=== PATIENT | female | born 1945 | race Caucasian/White ===

== ENCOUNTER 2022-09-11 13:19 | Outpatient (CLI) | payer MEDICARE, OTHER, SELFPAY ==
--- NOTE | 2022-09-11 13:30 | CRLHL7_ITS ---
For Patients: As a result of the Century Cures Act, medical imaging exams and procedure reports are released immediately into your electronic medical record. You may view this report before your referring provider. If you have questions, please contact your health care provider. DXA BONE MINERAL DENSITY STUDY Reason for exam: Bone density disorder. Current height (in): 60. Weight (lb): 124. Menopause age: 49. Ethnicity: White. 1. Have you had a previous hip or vertebral fracture? No. 2. Have you had any fractures during your adult life which did not result from significant trauma (e.g., auto accident)? No. 3. Did either of your parents have a hip fracture? No. 4. Do you smoke? No. 5. Have you ever taken Glucocorticoids? No. 6. Do you have rheumatoid arthritis? No. 7. Do you have secondary osteoporosis? No. 8. Do you drink 3 or more alcoholic drinks per day? No. 9. Are you being treated for osteoporosis? No. 10. Have you ever taken any of the following medications: Actonel, Evista, Fosamax, Miacalcin, Reclast, Boniva, Forteo, HRT (i.e., estrogen/hormone therapy), Protelos, Prolia, Vitamin D, Calcium, other ??? please specify. ANSWER: Yes, Fosamax and calcium. 11. Do you have any of the following medical conditions: Anorexia or bulimia, asthma or emphysema, end stage renal disease, hyperparathyroidism, any seizure disorders, cancer, inflammatory bowel diseases, hysterectomy, other ??? please specify. 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 What was your maximum height (inches)? 62. 13. Do you perform weight bearing exercise regularly? Yes. 14. Do you regularly consume dairy products? Yes. 15. Do you drink caffeinated beverages? Yes. If female: 16. At what age did your period start? 15. 17. Are you premenopausal? No. 18. How many full-term pregnancies have you had? 3. 19. Have you ever missed your period for more than 6 months in a row (not including or menopause)? No. TECHNIQUE: Bone mineral density study was performed using the [employer]. FINDINGS: The results of the study expressed as bone mineral density (BMD) are as follows: Lumbar spine L1 to L3: BMD: 0.785 g/cm2. T-score: -2.1. Z-score: 0.4 Neck Left: BMD: 0.645 g/cm2. T-score: -1.8. Z-score: 0.4 Right: BMD: 0.672 g/cm2. T-score: -1.6. Z-score: 0.6 Total Left: BMD: 0.776 g/cm2. T-score: -1.4. Z-score: 0.6 Right: BMD: 0.812 g/cm2. T-score: -1.1. Z-score: 0.9 IMPRESSION: Osteopenia. FRAX 10-year Fracture Risk Major Osteoporotic Fracture: 14% Hip Fracture: 3.6% Reported Risk Factors: [place] () Neck BMD=0.645, BMI= 24.2 Jorge Pennington M.D. Diagnostic Radiologist [email or web address] [email or web address]/[email or web address]/Dictated by: Jorge Pennington MD @ 09/11/2022 3:45:00 PM (Electronically Signed)
== END 2022-09-11 13:20 | disposition home or self-care (01) ==
LOC: RAD 13:22
PROVIDERS: PCP Internal Medicine; Visit Provider Internal Medicine
DX: M85.88 Other specified disorders of bone density and structure, other site (principal)
CPT/HCPCS: 77080

== ENCOUNTER 2022-10-22 08:28 | Outpatient (CLI) | payer MEDICARE, OTHER, SELFPAY | END 2022-10-22 08:29 | disposition home or self-care (01) | LOC: NFLDREF 10-23 00:40 | PROVIDERS: PCP Internal Medicine; Referring Provider Internal Medicine; Visit Provider Internal Medicine | DX: E78.5 Hyperlipidemia, unspecified (principal); E03.9 Hypothyroidism, unspecified | CPT/HCPCS: 80061; 84443 ==

== ENCOUNTER 2022-11-26 10:05 | Outpatient (CLI) | payer MEDICARE, OTHER, SELFPAY ==
--- NOTE | 2022-11-26 10:15 | CRLHL7_ITS ---
For Patients: As a result of the Cures Act, medical imaging exams and procedure reports are released immediately into your electronic medical record. You may view this report before your referring provider. If you have questions, please contact your health care provider. BILATERAL SCREENING MAMMOGRAM WITH COMPUTER-AIDED DETECTION AND TOMOSYNTHESIS TECHNIQUE: CC and MLO views were obtained. These mammographic images have been obtained using full-field digital technique. These mammographic images were interpreted with the benefit of computer-aided detection. Breast tomosynthesis was used in this interpretation. COMPARISON FILM: 12/07/21 10/11/20, 11/15/19. FINDINGS: The breasts are heterogeneously dense, which may obscure small masses. IMPRESSION: There is no radiographic evidence for malignancy. ASSESSMENT: BI-RADS Category 2: Benign RECOMMENDATION: Routine screening mammogram in 1 year. A lay language report of this examination will be provided to the patient. DUNG GARCIA M.D. Diagnostic/Nuclear Medicine Radiologist [email or web address] Transcribed: 2:[address]/Dictated by: Dung Garcia MD @ 11/29/2022 10:49:00 AM (Electronically Signed)
== END 2022-11-26 10:06 | disposition home or self-care (01) ==
LOC: MAMMO 10:06
PROVIDERS: PCP Internal Medicine; Visit Provider Internal Medicine
DX: Z12.31 Encounter for screening mammogram for malignant neoplasm of breast (principal); R92.2 Inconclusive mammogram
CPT/HCPCS: 77063; 77067

== ENCOUNTER 2023-10-28 08:30 | Outpatient (CLI) | payer MEDICARE, OTHER, SELFPAY ==
--- OUTSIDE RECORDS SUMMARY | 2023-10-30 11:25 | XMS_ITS | Encounter Summary ---
Author Organization [facility] Address [address] [place] [id number] Care Team Providers Care Fountain Pen Nibs Inspector Name Role Phone Elsewhere, Pcp Primary Care Provider Unavailabl e Encounter Details Date Type Department Care Team (Late st Contact Info) Description 07/21/2023 Orders Only Division of Colon and Rectal Surgery in [place], [place] [address] [place] [phone] Evan Good, PBrijeshABrijesh-C. [address] [place] [phone] Ileostomy Status (HCC) (Primary Dx) Social History Tobacco Use Types Packs/Day Years Used Date Smoking Tobacco: Never Passive Smoke Exposure: Never Smokeless Tobacco: Never Alcohol Use Standard Drinks/Week Comments Never 0 (1 standard drink = 0.6 oz pur e alcohol) Humiliation, Afraid, Rape, and Kick questionnair e Answer Date Recorded Within the last year, have y ou been afraid of your partner or ex-partner? No 12/03/2021 Within the last year, have y ou been humiliated or emotionally abused in other ways by your partner or ex-partner? No Within the last year, have y ou been kicked, hit, slapped, or otherwise physically hurt by your partner or ex-partner? No 12/03/2021 Within the last year, have y ou been raped or forced to have any kind of sexual activity by your partner or ex-partner? No 12/03/2021 Social Connection and Isolat ion Panel [NHANES] Answer Date Recorded In a typical week, how many times do you talk on the phone with family, friends, or neighbors? Twice a week 12/03/2021 How often do you get togethe r with friends or relatives? Three times a week 12/03/2021 How often do you attend chur or islam services? More than 4 times per year 12/03/2021 Do you belong to any clubs o r organizations such as oriental orthodox groups, unions, fraternal or athletic groups, or school groups? Yes 12/03/2021 How often do you attend meet ings of the clubs or organizations you belong to? More than 4 times per year 12/03/2021 Are you , , di vorced, , never , or living with a partner? 12/03/2021 AUDIT-C Answer Date Recorded Q1: How often do you have a drink containing alc ohol? Never 12/03/2021 Average Number of Drinks Not on file 022 Frequency of Binge Drinking Not on file 11/11 Overall Financial Resource Strain (CARDIA) Answe r Date Recorded How hard is it for you to pa y for the very basics like food, housing, medical care, and heating? Not hard at all 01/15/2023 PHQ-2 Answer Date Recorded PHQ-2 Score 2 04/16/2021 [facility] - Occupational Stress Questionnaire Answer Date Recorded Do you feel stress - tense, restless, nervous, or anxious, or unable to sleep at night because your mind is troubled all the time - these days? Not at all 12/03/2021 Exercise Vital Sign Answer Date Recorde d On average, how many days pe r week do you engage in moderate to strenuous exercise (like a brisk walk)? 7 days 01/15/2023 On average, how many minutes do you engage in exercise at this level? 70 min 01/15/2023 Hunger Vital Sign Answer Date Recorded Within the past 12 months, y ou worried that your food would run out before you got the money to buy more. Never true 01/16/20 23 Within the past 12 months, t he food you bought just didn't last and you didn't have money to get more. Never true 01/15/2023 PRAPARE - Transportation Answer Date Re corded In the past 12 months, has l ack of transportation kept you from medical appointments or from getting medications? No 07/2022 In the past 12 months, has l ack of transportation kept you from meetings, work, or from getting things needed for daily living? No 01/15/2023 Nutrition Answer Date Recorded On average, how many serving s of fruits and vegetables do you eat per day (serving size is equal to 1 cup or approximately the size of a tennis ball)? 5 or more 01/15/2023 Dental Answer Date Recorded Dental: Regular Dentist Yes 04/02/19 Employment Answer Date Recorded Employment status Retired 01/15/2023 Housing Stability Answer Date Recorded What is your living situation today? [facility] to live 01/15/2023 Education Answer Date Recorded What is the highest level of school you have completed or the highest degree you have received? Some college, no degree 04/16/2021 Sex and Gender Information Value Date Recorded Sex Assigned at Female 11/19/2018 6:54 AM CDT Gender Identity Female 10/14/2017 2:48 PM CDT Sexual Orientation Straight 10/14/2017 2: 48 PM CDT documented as of this encounter Plan of Treatment Upcoming Encounters Date Type Department Care Team (Latest Contact Info) Description 11/12/2023 8:10 AM CDT Appointment Department of Laboratory Medicine and Pathology, [facility], in [place], [place] 200 [place] [phone] Alejandro Flores APRN, C.N.P. 200 [place] [phone] 11/12/2023 9:00 AM CDT Appointment Department of Radiology in [place], [place] 200 [place] [phone] Alejandro Flores APRN, C.N.P. [address] [place] [phone] Discharge Disposition: Home or Self Care 11/12/2023 10:45 AM CDT Appointment Department of Radiology, [facility], in [place], [place] [address] [place] [phone] Alejandro Flores APRN, C.N.P. [address] [place] [phone] 11/12/2023 3:00 PM CDT Office Visit Division of Gastroenterology in [place], [place] [address] [place] [phone] Alejandro Flores APRN, C.N.P. [address] [place] [phone] documented as of this encounter Visit Diagnoses Diagnosis Ileostomy Status (HCC)- Primary documented in this encounter Additional Health Concerns Assessment Noted Time PHQ-9 Depression Total Score: 0 10/18/19 17 3:33 PM CDT documented as of this encounter Care Teams Fountain Pen Nibs Inspector Relationship Specialty Start Date End Date Elsewhere, Pcp PCP - General Internal Medicine 01/17/23 documented as of this encounter
--- OUTSIDE RECORDS SUMMARY | 2023-10-30 11:25 | XMS_ITS | Encounter Summary ---
Author Organization [facility] Address [address] [place] [address] Care Team Providers Care Security System Installer Name Role Phone Elsewhere, Pcp Primary Care Provider Unavailabl e Encounter Details Date Type Department Care Team (Late st Contact Info) Description 11/22/2015 Historical Ophthalmology [facility] Joni Viveros M.D. Social History Tobacco Use Types Packs/Day Years Used Date Smoking Tobacco: Never Assessed Sex and Gender Information Value Date Recorded Sex Assigned at Female 11/19/2018 6:54 AM CDT Gender Identity Female 10/14/2017 2:48 PM CDT Sexual Orientation Straight 10/14/2017 2: 48 PM CDT documented as of this encounter Progress Notes * Joni Viveros M.D. - 11/22/2015 7:29 AM CDT Eye General CHIEF COMPLAINT 1 year check up HISTORY OF PRESENT ILLNESS Mild blur; at night; both eyes; constant. Occasionally wears +.75 OTC readers for very small print,nothing for distance. IMPRESSION / REPORT / PLAN #1 PVD both eyes Plan: Monitor Q2 years DIAGNOSIS #1 PVD both eyes CDM Reports - EYEGEN Id: [id number] Status: Fnl documented in this encounter Plan of Treatment Upcoming Encounters Date Type Department Care Team (Latest Contact Info) Description 11/12/2023 8:10 AM CDT Appointment Department of Laboratory Medicine and Pathology, [facility] in [place], [place] [address] [place] [phone] Alejandro Flores APRN, C.N.P. [address] [place] [phone] 11/12/2023 9:00 AM CDT Appointment Department of Radiology in [place], [place] [address] [place] [phone] Alejandro Flores APRN, C.N.P. [address] [place] [phone] Discharge Disposition: Home or Self Care 11/12/2023 10:45 AM CDT Appointment Department of Radiology, [facility] in [place], [place] [address] [place] [phone] Alejandro Flores APRN, C.N.P. [address] [place] [phone] 11/12/2023 3:00 PM CDT Office Visit Division of Gastroenterology in [place], [place] [address] [place] [phone] Alejandro Flores APRN, C.N.P. [address] [place] [phone] documented as of this encounter Visit Diagnoses Not on filedocumented in this encounter Additional Health Concerns Infection Onset Date Last Indicated Resolved Time COVID19 Pending 06/13/2021 06/13/2021 06/13/2021 2 :09 PM CDT documented as of this encounter Care Teams Security System Installer Relationship Specialty Start Date End Date Elsewhere, Pcp PCP - General Internal Medicine 01/17/23 documented as of this encounter
--- OUTSIDE RECORDS SUMMARY | 2023-10-30 11:25 | XMS_ITS ---
Author Organization [facility] Address [address] [place] [address] Care Team Providers Care Steam Shovel Oiler Name Role Phone Unavailable Unavailable Unavailable Surgery Details Not on file Complications Check Surgery Details section. Procedure Estimated Blood Loss Check Surgery Details section. Procedure Findings Check Surgery Details section. Procedure Specimens Taken Check Surgery Details section.
--- OUTSIDE RECORDS SUMMARY | 2023-10-30 11:25 | XMS_ITS | Encounter Summary ---
Author Organization [facility] Address [address] [place] [address] Care Team Providers Care Documentation Spec Name Role Phone Elsewhere, Pcp Primary Care Provider Unavailabl e Encounter Details Date Type Department Care Team (Late st Contact Info) Description 11/22/2014 Historical Ophthalmology [facility] Joni Viveros M.D. Social History Tobacco Use Types Packs/Day Years Used Date Smoking Tobacco: Never Assessed Sex and Gender Information Value Date Recorded Sex Assigned at Female 11/19/2018 6:54 AM CDT Gender Identity Female 10/14/2017 2:48 PM CDT Sexual Orientation Straight 10/14/2017 2: 48 PM CDT documented as of this encounter Progress Notes * Joni Viveros M.D. - 11/22/2014 2:05 PM CDT Eye Postoperative MULTI-VISIT DOCUMENT This document contains multiple patient visits and is available for review in Document Viewer. CDM Reports - EYEPO Id: [id number] Status: Fnl documented in this encounter Plan of Treatment Upcoming Encounters Date Type Department Care Team (Latest Contact Info) Description 11/12/2023 8:10 AM CDT Appointment Department of Laboratory Medicine and Pathology, [facility] in [place], [place] [address] [place] [phone] Alejandro Flores APRN, C.N.P. [address] [place] [phone] 11/12/2023 9:00 AM CDT Appointment Department of Radiology in [place], [place] [address] [place] [phone] Alejandro Flores APRN, C.N.P. [address] [place] [phone] Discharge Disposition: Home or Self Care 11/12/2023 10:45 AM CDT Appointment Department of Radiology, [facility] in [place], [place] [address] [place] [phone] Alejandro Flores APRN, C.N.P. [address] [place] [phone] 11/12/2023 3:00 PM CDT Office Visit Division of Gastroenterology in [place], [place] [address] [place] [phone] Alejandro Flores APRN, C.N.P. [address] [place] [phone] documented as of this encounter Visit Diagnoses Not on filedocumented in this encounter Additional Health Concerns Infection Onset Date Last Indicated Resolved Time COVID19 Pending 06/13/2021 06/13/2021 06/13/2021 2 :09 PM CDT documented as of this encounter Care Teams Documentation Spec Relationship Specialty Start Date End Date Elsewhere, Pcp PCP - General Internal Medicine 01/17/23 documented as of this encounter
--- OUTSIDE RECORDS SUMMARY | 2023-10-30 11:25 | XMS_ITS | Referral Summary ---
Author Organization [facility] Address [address] [place] [address] Care Team Providers Care Cow Tender Name Role Phone Elsewhere, Pcp Primary Care Provider Unavailabl e Source Comments Patient records contain information from all sites at [facility]. For routine questions regarding patient records, call [phone] during business hours, M-F 8:00 AM - 5:00 PM Central Time. Record requests for emergency care only can be directed to [phone] at any time.[facility] Allergies Active Allergy Reactions Criticality Noted Date Comments Atenolol Hives (Reselect Reaction),Nausea Only 11/10/2015 Other reaction(s): Dizziness Chlorthalidone Myalgia 09/25/2015 With cramping Cholestyramine GI intolerance 08/18/2019 Patient states she does not remember taking this medication or being allergic to it Codeine Hallucinations 10/19/2004 Pneumococcal Vaccine Edema (Reselect Reaction) 10/26/2008 Sorbitol Solution Other (see comments) Low 07/09/19 13 Wood smoke caused frequent upper respiratory infections. Medications Medication Sig Dispensed Refills Start Date End Date Status calcium carbonate/vitamin D3 (CALTRATE 600 + D ORAL) Take 1 tablet by mouth 2 (two) times a day. 10/16/2016 Active fluticasone propionate (FLONASE) 50 mcg/actuation nasal spray Administer 2 sprays into nostril(s) as needed. 11/20/2015 Active DENAVIR 1 % cream Apply 1 Application topically as needed. 0 07/08/2017 Active triamcinolone (KENALOG) 0.1 % creamIndications: Dermatitis Apply 1 application topically 2 (two) times a day as needed for rash. Plus/minus wet dressings. 454 g 3 02/19/2021 Active DME Ostomy suppliesIndicatio ns:Dysfunction Ileostomy Valve (HCC) DME Order 1 Unspecified 11 06/15/2021 Active levothyroxine (SYNTHROID, LEVOTHROID) 88 mcg tablet TAKE 1 TABLET BY MOUTH EVERY DAY 90 tablet 3 04/08/2022 Active amLODIPine (NORVASC) 5 mg tablet TAKE 1 TABLET (5 MG TOTAL) BY MOUTH DAILY. 60 tablet 06/25/2022 Active rosuvastatin (CRESTOR) 5 mg tablet TAKE 1 TABLET BY MOUTH EVERY DAY 90 tablet 09/23/2022 Active alendronate (FOSAMAX) 35 mg tablet Take 35 mg by mouth once a week. 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 Pain Back Lumbar Radiculopathy Pain Hip Right Resolved Problems Problem Noted Date Diagnosed Date Resolved Date Obstruction Intestinal 04/20/202107/16 Overview (04/20/2021): Added automatically from request for surgery [id number] Immunizations Name Administration Dates Next Due HZV (ZOSTAVAX) 08/08/2009 HepA, Unspecified 09/04/1999,10/02/1998 HepB Adult 05/26/2001 HepB, Unspecified 11/25/2001,07/03/2001 Influenza Split 11/11/2011,11/14/2010,11/21/2009 Influenza TIV (IM) 12/24/2005,12/07/2003, 003 Influenza high dose QV(65 ye ars or older) (PF) 12/14/2020,11/24/2019 PCV13 10/22/2017 PPSV23 11/18/2019(Deferred: Patient Refused - Patient decided to hold off for now),12/24/2005,12/19/2004 RZV (SHINGRIX) 09/27/2019,04/11/2019 SARS-COV-2 (COVID-19) - MODE RNA BIVALENT(Discontinued) 07/01/2022 SARS-COV-2 (COVID-19) - PFIZ ER (Discontinued)(12 years or older) 11/05/2021,05/16/2021,11/29/2020,2020,03/28/2020 SARS-COV-2 (COVID-19) - PFIZ ER TS(Discontinued)(12 years or older) 05/16/2021 Td (Adult), adsorbed 05/26/2001 Td Preservative Free (TENIVA C, DECAVAC) 11/17/2018 Td, (Adult) Unspecified 09/07/1991,06/01/1980 Tdap 10/27/2008 TyVi (inj) 10/27/2008 influenza trivalent high dos e (HD)(PF) 12/15/2018,11/17/2017,10/18/2016,2015,11/11/2014,11/11/2011 Social History Tobacco Use Types Packs/Day Years Used Date Smoking Tobacco: Never Passive Smoke Exposure: Never Smokeless Tobacco: Never Tobacco Cessation:Counseling Given: Not Answered Alcohol Use Standard Drinks/Week Comments Never 0 [...] How often do you attend chur or cheondoism services? More than 4 times per year 12/03/2021 Do you belong to any clubs o r organizations such as tenriism groups, unions, fraternal or athletic groups, or [...] Answer Date Recorded PHQ-2 Score 2 04/16/2021 [facility] - Occupational Stress [...] your living situation today? I have a [facility] place to live 01/15/2023 Education Answer Date Recorded What is the highest level of school you have completed or the highest degree you have received? Some college, no degree 04/16/2021 Sex and Gender Information Value Date Recorded Sex Assigned at Female 11/19/2018 6:54 AM CDT Gender Identity Female 10/14/2017 2:48 PM CDT Sexual Orientation Straight 10/14/2017 2: 48 PM CDT Last Filed Vital Signs Vital Sign Reading Time Taken Comments Blood Pressure 160/75 11/20/2021 10:47 AM CDT Pulse 71 11/20/2021 10:47 AM CDT Temperature 36.1 ??C (97 ??F) 11/20/2021 10:47 AM CDT Respiratory Rate 16 11/20/2021 10:47 AM CDT Oxygen Saturation 98% 06/16/2021 10:50 AM CDT Inhaled Oxygen Concentration - - Weight 53.1 kg (117 lb 1 oz) 11/20/2021 10:47 AM CDT Height 154.9 cm (5' 1) 01/30/2022 7:24 AM VOLUNTEER SPECIALIST Body Mass Index 22.68 06/14/2021 5:59 AM CDT Plan of Treatment Upcoming Encounters Date Type Department Care Team (Latest Contact Info) Description 11/12/2023 8:10 AM CDT Appointment Department of Laboratory Medicine and Pathology, [place], [place] [address] [place] [phone] Alejandro Flores APRN, C.N.P. [address] [place] [phone] 11/12/2023 9:00 AM CDT Appointment Department of Radiology [place], [place] [address] [place] [phone] Alejandro Flores APRN, C.N.P. [address] [place] [phone] Discharge Disposition: Home or Self Care 11/12/2023 10:45 AM CDT Appointment Department of Radiology, [place], [place] [address] [place] [phone] Alejandro Flores APRN, C.N.P. [address] [place] [phone] 11/12/2023 3:00 PM CDT Office Visit Division of Gastroenterology in [place], [place] [address] [place] [phone] Alejandro Flores APRN, C.N.P. [address] [place] [phone] Medical Devices Implanted Type Area Book Packer Device Identifier Shelf Expiration Date Model / Serial / Lot Dental Implant Implanted:10/25 (Quantity not on file) Misc Other Tooth Description:Device Status Te xt - MiscOther. tooth implant. Misc Other-06/10/2019 Implanted:06/09 (Quantity not on file) Misc Other Tooth Lens Hood 16.0d X 6.0mm - Guzman [id number] Implanted:Qty: 1 on 11/14/2014 Ocular Lens Other/Legacy - See Implant Description [facility] [employer] Description:Device Manufactu rer - [employer]. Body Location - Other. Right. Device Status Text - [id number]. Lens Hood 16.0d X 6.0mm - Guzman [id number] Implanted:Qty: 1 on 11/23/2014 Ocular Lens Other/Legacy - See Implant Description [employer] Description:Device Manufactu rer - [employer]. Body Location - Other. Left. Device Status Text - [id number]. Procedures Procedure Name Priority Date/Time Associated Diagnosis Comments THYROID-STIMULATING HORMONE-SENSITIVE (S-TSH) Routine 01/30/2022 6:54 AM VOLUNTEER SPECIALIST Hypothyroidism BI BREAST SCREENING BILATERAL WITH TOMOSYNTHESIS RAD - Routine (most inpatients and all outpatients) 12/07/2021 12:24 PM CDT Screening Mammogram Breast Cancer from Last 3 Months or Most Recently Relevant to Health Maintenance Results * S-TSH (Thyroid-Stimulating Hormone - Sensitive) (01/30/2022 6:54 AM VOLUNTEER SPECIALIST) TSH, Sensitive 1.6 0.3 - 4.2 mIU/L 01/30/2022 8:03 AM VOLUNTEER SPECIALIST DTL Blood (Blood, Venous) 01/30/2022 6:54 AM VOLUNTEER SPECIALIST 01/30/2022 7:28 AM VOLUNTEER SPECIALIST Traci Pickett M.D. LAB BLOOD ADD-ON [facility] [address] [place] [address], [place] DTL [facility] [address] [place] [address] * BI Breast Screening Bilateral with Tomosynthesis (12/07/2021 12:24 PM CDT) Anatomical Region Laterality Modality Breast, Breast Imaging RST L OS, Breast Imaging ARZ LOS, Breast Imaging FLA LOS Bilateral Mammography 12/07/2021 12:4 2 PM CDT Impressions 12/07/2021 12:45 PM CDT Negative. RECOMMENDATION: ??Annual Screening Mammogram ASSESSMENT: ??BI-RADS: 1: Negative. Narrative 12/07/2021 12:45 PM CDT EXAM: ??BI BREAST SCREENING BILATERAL WITH TOMOSYNTHESIS Current study was evaluated with a Computer Aided Detection (CAD) system. INDICATION: ??Screening mammogram. COMPARISON: ??Prior exam(s) were available and reviewed for comparison. DENSITY: ??d. The breast(s) are extremely dense, which lowers the sensitivity of mammography. FINDINGS: ??No findings of malignancy. ??No significant change since prior exam. Procedure Note Wayne Márquez M.D., Ph.D. - 12/07/2021 EXAM: BI BREAST SCREENING BILATERAL WITH TOMOSYNTHESIS Current study was evaluated with a Computer Aided Detection (CAD) system. INDICATION: Screening mammogram. COMPARISON: Prior exam(s) were available and reviewed for comparison. DENSITY: d. The breast(s) are extremely dense, which lowers thesensitivity of mammography. FINDINGS: No findings of malignancy. No significant change since priorexam. IMPRESSION: Negative. RECOMMENDATION: Annual Screening Mammogram ASSESSMENT: BI-RADS: 1: Negative. Ronald Lange M.D. IMG BI PROCEDURES from Last 3 Months or Most Recently Relevant to Health Maintenance Advance Directives For more information, please contact: [phone] Documents on File Type Date Recorded Patient News Specialist Expl anation Advance Directives 05/31/2021 8:15 AM Gary Mendez SchirooEric HumkePeter Andrea HCPOA/ADVOCATE/AGENT/R EPRESENTATIVE/SURROGAT E Advance Directives 10/21/2011 12:00 AM Leg acy document. See document viewer. Advance Directives 08/10/2009 12:00 AM Lega cy document. See document viewer. * Full Code (Latest Code Status on File) Date Activated Date Inactivated Comments 06/14/2021 1:03 PM 06/16/2021 1:34 PM Question Answer Comments Full Code: Not Discussed Due to: Not medically appropriate * Full Code Date Activated Date Inactivated Comments 06/14/2021 5:55 AM 06/14/2021 1:02 PM Question Answer Comments Full Code: Discussed Healthcare Agents on File Name Relationship Healthcare Agent Relationship Communication Gary Mendez Spouse Health Care Agent [email or web address] Ludivina Soninidiao Daughter First Alter anderson Health Care Agent Celso Andrea Son First Alternate Health Care Agent [email or web address] Manan Nerissasylvester Son First Alternate Health Care Agent [email or web address] Care Teams Cow Tender Relationship Specialty Start Date End Date Elsewhere, Pcp PCP - General Internal Medicine 01/17/23
--- OUTSIDE RECORDS SUMMARY | 2023-10-30 11:25 | XMS_ITS | Encounter Summary ---
Author Organization [facility] Address [address] [place] [address] Care Team Providers Care Billing And Accounting Staff Assistant Name Role Phone Elsewhere, Pcp Primary Care Provider Unavailabl e Encounter Details Date Type Department Care Team (Late st Contact Info) Description 12/19/2014 Historical Ophthalmology RST OPH Joni Viveros M.D. Social History Tobacco Use Types Packs/Day Years Used Date Smoking Tobacco: Never Assessed Sex and Gender Information Value Date Recorded Sex Assigned at Female 11/19/2018 6:54 AM CDT Gender Identity Female 10/14/2017 2:48 PM CDT Sexual Orientation Straight 10/14/2017 2: 48 PM CDT documented as of this encounter Progress Notes * Joni Viveros M.D. - 12/19/2014 1:08 PM CST Eye Postoperative MULTI-VISIT DOCUMENT This document contains multiple patient visits and is available for review in Document Viewer. CDM Reports - EYEPO Id: [id number] Status: Fnl documented in this encounter Plan of Treatment Upcoming Encounters Date Type Department Care Team (Latest Contact Info) Description 11/12/2023 8:10 AM CDT Appointment Department of Laboratory Medicine and Pathology, [facility] in [place], [place] [address] [place] [phone] Alejandro Flores APRN, C.N.P. [address] [place] [phone] 11/12/2023 9:00 AM CDT Appointment Department of Radiology in [place], [place] [address] [place] [phone] Alejandro Flores APRN, C.N.P. [address] [place] [phone] Discharge Disposition: Home or Self Care 11/12/2023 10:45 AM CDT Appointment Department of Radiology, [facility] in [place], [place] [address] [place] [phone] Alejandro Flores APRN, C.N.P. [address] [place] [phone] 11/12/2023 3:00 PM CDT Office Visit Division of Gastroenterology in [place], [place] [address] [place] [phone] Alejandro Flores APRN, C.N.P. [address] [place] [phone] documented as of this encounter Visit Diagnoses Not on filedocumented in this encounter Additional Health Concerns Infection Onset Date Last Indicated Resolved Time COVID19 Pending 06/13/2021 06/13/2021 06/13/2021 2 :09 PM CDT documented as of this encounter Care Teams Billing And Accounting Staff Assistant Relationship Specialty Start Date End Date Elsewhere, Pcp PCP - General Internal Medicine 01/17/23 documented as of this encounter
--- OUTSIDE RECORDS SUMMARY | 2023-10-30 11:25 | XMS_ITS | Clinical Summary ---
Author Organization [employer] [email or web address] Address [place], [place] [address] Care Team Providers Care Student Development Dean Name Role Phone Kalpesh Ellison MD Primary Care Provider [phone] Allergies Active Allergy Reactions Criticality Noted Date Comments Atenolol Hives,Nausea Only,Dizziness 11/10/2015 Chlorthalidone Myalgia 09/25/2015 With cramping Unlisted Allergen (Include Detail In Comments) Other - Describe In Comment Field 07/08/2012 Wood smoke caused frequent upper respiratory infections. Pneumococcal Vaccine Edema 11/19/2006 Medications Medication Sig Dispensed Refills Start Date End Date Status CALCIUM ANTACID 500 MG CHEWABLE TAB 2 tab daily 0 11/19/2006 Active levothyroxine (SYNTHROID) 100 mcg tabletIndications:Unsp ecified hypothyroidism Take 1 tablet by mouth once daily. 90 tablet 4 01/25/2011 Active rosuvastatin (CRESTOR) 5 mg tablet Take by mouth at bedtime. 0 11/16/2014 Active fluticasone (50 mcg per actuation) nasal solution (FLONASE) Inhale 2 Sprays into both nostrils once daily. prn 1 Bottle 0 01/09/2015 Active alendronate (FOSAMAX) 70 mg tablet Take 1 tablet by mouth once a week in the morning. Take on empty stomach with full glass of water. Do not lie down for 1 hr. 0 12/04/2014 Active betamethasone dipropionate 0.05% (DIPROLENE 0.05% GEL) gelIndications:Allergi c urticaria Apply twice daily for up to 2 weeks. 50 g 1 09/08/2015 Active cimetidine (TAGAMET) 300 mg tabletIndications:Cole rgic urticaria Take 1 tablet by mouth 2 times daily. 60 tablet 0 09/08/2015 Active predniSONE (DELTASONE) 10 mg tabletIndications:Cole rgic urticaria Take 5 tablets daily for 3 days, then 4,3,2, 1 each daily for 3 days then discontinue. 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 Immunizations Name Administration Dates Next Due AMB Influenza, IIV3 (Age >=3 years)(Flu Clinic Only) 12/02/2011 COVID-19 vaccine (iGen6 30mcg/0.3mL) PF, MDV 04/18/2020,03/28/2020 Hepatitis A (Adult) 09/04/1999,10/02/1998 Hepatitis B (Adult) 11/25/2001,07/03/2001,2001 Influenza Virus, Unspecified 11/17/2013 Influenza, High-dose Inactivated 019,11/17/2017,10/18/2016,2015,11/11/2014,11/11/2011 Influenza, High-dose Quadriv alent Inactivated 11/24/2019 Influenza, IIV3 (Age 6-35 mos) 11/01/2008 Influenza, IIV3 (Age >=3 years) 11/18/19 13,12/05/2010,11/21/2009,2007,11/10/2006,12/24/2005,12/19/2004,1 ,01/12/2003 Pneumococcal Poly,23-Valent (Pneumovax) 12/24/2005,12/19/2004 Pneumococcal conj 13-Valent (Prevnar 13) 10/22/2017 TD, UNSPECIFIED 09/07/1991,06/01/1980 Td (Age >=7 Years) 05/26/2001 Td, Preservative Free (age > = 7 Years) 11/17/2018 Tdap 10/27/2008 Typhoid (injectable) 10/27/2008 Zoster (Shingrix-RZV, recombinant) 09/27/2019, Zoster (Zostavax-ZVL, live) 08/08/2009 Family History Medical History Relation Name Comments Other Father at 92 of o ld age Hypertension Mother at 94 of o ld age Relation Name Status Comments Father Mother Social History Tobacco Use Types Packs/Day Years Used Date Smoking Tobacco: Never Smokeless Tobacco: Never Tobacco Cessation:Counseling Given: Yes Alcohol Use Standard Drinks/Week Comments No 0 (1 standard drink = 0.6 oz pur e alcohol) Sex and Gender Information Value Date Recorded Sex Assigned at Female 03/22/2020 9:07 AM TIMBER BUCKER Gender Identity Female 03/22/2020 9:07 AM TIMBER BUCKER Sexual Orientation Straight 03/22/2020 9: 08 AM TIMBER BUCKER Obstetrics History Last Filed Vital Signs Vital Sign Reading Time Taken Comments Blood Pressure 160/80 09/08/2015 10:38 AM CDT Pulse 45 09/08/2015 10:02 AM CDT Temperature 36.4 ??C (97.5 ??F) 09/08/2015 10:02 AM C DT Respiratory Rate - - Oxygen Saturation 97% 09/08/2015 10:02 AM CDT Inhaled Oxygen Concentration - - Weight 60.8 kg (134 lb) 09/08/2015 10:02 AM CDT Height 154 cm (5' 0.63) 09/08/2015 10:02 AM CDT Body Mass Index 25.63 09/08/2015 10:02 AM CDT Plan of Treatment Health Maintenance Due Date Last Done Comments Hepatitis C screening for ag e 18-79 1962 RSV vaccine for adults or (1 - 1-dose 60+ series) 2004 Depression screening for age 12+ 09/03/2016 09/04/19 16, 07/31/2015 BMI (ht and wt on same day) for age 18+ 09/07/2016 09/08/2015 Pneumococcal series for age 65+ (3 of 3 - PPSV23 or PCV20) 10/22/2022 10/22/2017, 12/24/2005, 12/19/2004 COVID-19 vaccine series (2022-24 season) 2023 05/16/2021, 11/29/2020, 04/18/2020, Additional history exists Influenza for age 65+ 10/12/2023 11/24/2019 , 12/15/2018, 11/17/2017, Additional history exists Tetanus booster 11/17/2028 11/17/2018, 10/11, 05/26/2001, Additional history exists Tdap Completed 10/27/2008 DEXA/DXA scan for age 65+ Completed 2010 (Completed outside of [facility]) Zoster (shingles) series for age 50+ Completed 09/27/2019, 04/11/2019, 08/08/2009 Advance Directives Documents on File Type Date Recorded Patient Wood Ski Maker Expl anation Power of Facility Environmental Technician 01/16/2015 9:17 AM SHORT FORM POWER OF FUR BLOWER/FILED WITH DUNG RAMOS, 02/13/2009 Healthcare Directive 08/15/2009 HEALTH CARE DIRECTIVE, [facility], 08/15/09 Care Teams Student Development Dean Relationship Specialty Start Date End Date [place] [address] PCP - General 10/23/06
--- OUTSIDE RECORDS SUMMARY | 2023-10-30 11:25 | XMS_ITS | Clinical Summary ---
Author Organization [facility] Address [address] [place] [address] Care Team Providers Care Ready To Wear Department Manager Name Role Phone Elsewhere, Pcp Primary Care Provider Unavailabl e Source Comments Patient records contain information from all sites at [facility]. For routine questions regarding patient records, call [phone] during business hours, M-F 8:00 AM - 5:00 PM Central Time. 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 Pain Back Lumbar Radiculopathy Pain Hip Right Resolved Problems Problem Noted Date Diagnosed Date Resolved Date Obstruction Intestinal 04/20/202107/16 Overview (04/20/2021): Added automatically from request for surgery [id number] Immunizations Name Administration Dates Next Due HZV [...] influenza trivalent high dos e (HD)(PF) 12/15/2018,11/17/2017,10/18/2016,2015,11/11/2014,11/11/2011 Family History Medical History Relation Name Comments Alcohol abuse Daughter Ludivina recovering Depression Daughter Ludivina Hypertension Father Don he lived to 92 Retinal detachment Father Don Skin cancer Father Don lived to age 92 Breast cancer Father's Sister Kapoor under age 5 0 Anxiety disorder Mother Manjula Hypertension Mother Manjula she lived to ag e 93 Strabismus Mother Manjula Uterine cancer Mother Manjula ?unsure on di agnosis: had radioactive seeds placed Breast cancer Mother's Sister Tessa under age 5 0 Hypertension Sister Sintia Glaucoma Neg Hx Macular degeneration Neg Hx Relation Name Status Comments Daughter Ludivina Alive Father Jayesh Father's Sister Emelia Maternal Grandfather Maternal Grandmother Mother Manjula Mother's Sister Tessa Paternal Grandfather Paternal Grandmother Sister Sintia Alive Son 1 Celso Alive Son 2 Manan Alive Social History Tobacco Use Types Packs/Day Years [...] 12/03/2021 How often do you attend chur ch or orthodoxy services? More than 4 times per year 12/03/2021 Do you belong to any clubs o r organizations such as lutheran groups, unions, fraternal or athletic groups, or [...] Answer Date Recorded PHQ-2 Score 2 04/16/2021 [facility] - Occupational [...] your living situation today? I have a [facility] place to live 01/15/2023 Education Answer Date [...] 154.9 cm (5' 1) 01/30/2022 7:24 AM DOUBLE NEEDLE OPERATOR Body Mass Index 22.68 06/14/2021 5:59 AM CDT Plan of Treatment Upcoming Encounters Date Type Department Care Team (Latest Contact Info) Description 11/12/2023 8:10 AM CDT Appointment Department of Laboratory Medicine and Pathology, [place], [place] [address] [place] [address] Alejandro Flores APRN, C.N.P. [address] [place] [phone] 11/12/2023 9:00 AM CDT Appointment Department of Radiology in [place], [place] [address] [place] [address] Alejandro Flores APRN, C.N.P. [address] [place] [phone] Discharge Disposition: Home or Self Care 11/12/2023 10:45 AM CDT Appointment Department of Radiology, [place], [place] [address] [place] [address] Alejandro Flores APRN, C.N.P. [address] [place] [phone] 11/12/2023 3:00 PM CDT Office Visit Division of Gastroenterology in [place], [place] [address] [place] [address] Alejandro Flores APRN, C.N.P. [address] [place] [phone] Health Maintenance Due Date Last Done Comments Office Visit for Blood Press ure Check / Re-check 02/20/2022 11/20/2021 Pneumococcal vaccine (65+ ye ars) (3 of 3 - PPSV23 or PCV20) 10/22/2022 10/22/2017, 12/24/2005, 12/19/2004 Thyroid Stimulating Hormone (TSH) test for thyroid function 01/30/2023 01/30/2022, 10/11/2020, 11/15/2019, Additional history exists Depression Screening (Annual PHQ-2) 02/10/2023 Fall Risk Screen (Annual) 02/10/2023 COVID-19 Vaccine (2022-2 4 season) 2023 04/28/2023, 07/01/2022, 11/05/2021, Additional history exists Influenza Vaccine (#1) 2023 , 12/14/2021, 12/14/2020, Additional history exists DTaP,Tdap,and Td Vaccines (3 - Td or Tdap) 11/17/2028 11/17/2018, 10/27/2008, 05/26/2001, Additional history exists Hepatitis A Vaccines Completed 09/04/1999, 10/02/18 99 Hepatitis B Vaccines Completed 11/25/2001, 07/03/2001, 05/26/2001 Zoster Vaccines Completed 09/27/2019, 02/2019, 08/08/2009 Mammogram Discontinued 12/07/2021, 02/2020, 11/15/2019, Additional history exists Medical Devices Implanted Type Area Domestic Travel Consultant Device Identifier Shelf Expiration Date Model / Serial / Lot Dental Implant Implanted:10/25 (Quantity not on file) Misc Other Tooth Description:Device Status Te xt - MiscOther. tooth implant. Misc Other-06/10/2019 Implanted:06/09 (Quantity not on file) Misc Other Tooth Lens Hood 16.0d X 6.0mm - Guzman [id number] Implanted:Qty: 1 on 11/14/2014 Ocular Lens Other/Legacy - See Implant Description [facility] Description:Device Manufactu rer - [employer]. Body Location - Other. Right. Device Status Text - [id number]. Lens Hood 16.0d X 6.0mm - Guzman [id number] Implanted:Qty: 1 on 11/23/2014 Ocular Lens Other/Legacy - See Implant Description [employer] Description:Device Manufactu rer - [employer]. Body Location - Other. Left. Device Status Text - [id number]. Procedures Procedure Name Priority Date/Time Associated Diagnosis Comments THYROID-STIMULATING HORMONE-SENSITIVE (S-TSH) Routine 01/30/2022 6:54 AM DOUBLE NEEDLE OPERATOR Hypothyroidism BI BREAST SCREENING BILATERAL WITH TOMOSYNTHESIS RAD - Routine (most inpatients and all outpatients) 12/07/2021 12:24 PM CDT Screening Mammogram Breast Cancer from Last 3 Months or Most Recently Relevant to Health Maintenance Results * S-TSH (Thyroid-Stimulating Hormone - Sensitive) (01/30/2022 6:54 AM DOUBLE NEEDLE OPERATOR) TSH, Sensitive 1.6 0.3 - 4.2 mIU/L 01/30/2022 8:03 AM DOUBLE NEEDLE OPERATOR DTL Blood (Blood, Venous) 01/30/2022 6:54 AM DOUBLE NEEDLE OPERATOR 01/30/2022 7:28 AM DOUBLE NEEDLE OPERATOR Traci Pickett M.D. 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 Care Teams Ready To Wear Department Manager Relationship Specialty Start Date End Date Elsewhere, Pcp PCP - General Internal Medicine 01/17/23
--- OUTSIDE RECORDS SUMMARY | 2023-10-30 11:25 | XMS_ITS | Encounter Summary ---
Author Organization [facility] Address [address] [place] [address] Care Team Providers Care Conditioner Tender Name Role Phone Elsewhere, Pcp Primary Care Provider Unavailabl e Encounter Details Date Type Department Care Team (Late st Contact Info) Description 11/14/2014 Historical Ophthalmology RST OPH Joni Viveros M.D. Social History Tobacco Use Types Packs/Day Years Used Date Smoking Tobacco: Never Assessed Sex and Gender Information Value Date Recorded Sex Assigned at Female 11/19/2018 6:54 AM CDT Gender Identity Female 10/14/2017 2:48 PM CDT Sexual Orientation Straight 10/14/2017 2: 48 PM CDT documented as of this encounter Progress Notes * Joni Viveros M.D. - 11/14/2014 7:40 AM CDT Eye Subsequent Visit HISTORY OF PRESENT ILLNESS Patient is here for Rene before having Cataract surgery today IMPRESSION / REPORT / PLAN topography acquired today both eyes CDM Reports - EYESV Id: [id number] Status: Fnl documented in this encounter Plan of Treatment Upcoming Encounters Date Type Department Care Team (Latest Contact Info) Description 11/12/2023 8:10 AM CDT Appointment Department of Laboratory Medicine and Pathology, [facility] in [place], [place] [address] [place] [phone] Alejandro Flores APRN, C.N.P. [address] [place] [phone] 11/12/2023 9:00 AM CDT Appointment Department of Radiology in [place], [place] [address] [place] [phone] Alejandro Flores APRN, C.N.P. [address] [place] [phone] Discharge Disposition: Home or Self Care 11/12/2023 10:45 AM CDT Appointment Department of Radiology, [facility] in [place], [place] [address] [place] [address] Alejandro Flores APRN, C.N.P. [address] [place] [phone] 11/12/2023 3:00 PM CDT Office Visit Division of Gastroenterology in [address] [phone] Alejandro Flores APRN, C.N.P. [address] [place] [phone] documented as of this encounter Visit Diagnoses Not on filedocumented in this encounter Additional Health Concerns Infection Onset Date Last Indicated Resolved Time COVID19 Pending 06/13/2021 06/13/2021 06/13/2021 2 :09 PM CDT documented as of this encounter Care Teams Conditioner Tender Relationship Specialty Start Date End Date Elsewhere, Pcp PCP - General Internal Medicine 01/17/23 documented as of this encounter
--- OUTSIDE RECORDS SUMMARY | 2023-10-30 11:26 | XMS_ITS | Encounter Summary ---
Author Organization [facility] Address [address] [place] [address] Care Team Providers Care Hot Shot Name Role Phone Elsewhere, Pcp Primary Care Provider Unavailabl e Encounter Details Date Type Department Care Team (Late st Contact Info) Description 10/25/2014 Historical Ophthalmology RST OPH Joni Viveros M.D. Social History Tobacco Use Types Packs/Day Years Used Date Smoking Tobacco: Never Assessed Sex and Gender Information Value Date Recorded Sex Assigned at Female 11/19/2018 6:54 AM CDT Gender Identity Female 10/14/2017 2:48 PM CDT Sexual Orientation Straight 10/14/2017 2: 48 PM CDT documented as of this encounter Progress Notes * Joni Viveros M.D. - 10/25/2014 12:36 PM CDT Eye General CHIEF COMPLAINT blurred vision HISTORY OF PRESENT ILLNESS Blurred vision; right eye; x 2 years; constantly; symptoms are severe. Patient had a break in the skin on the corners of each eye lid; last week, she states they were out in the field working with some chemicals. IMPRESSION / REPORT / PLAN #1 Cataracts both eyes, R>L [place] with IOl right eye reasonable. Discussed risks, goals, alternatives, advance directives, and the necessity of other members of the healthcare team participating in the procedure with the patient (or legal personnel representative and others present during the discussion). The patient understands. All questions answered and consent given. Get IOL and enzo Block Goal: [place] (16.00 D IOL) paired LRI at 90 degrees(fellow eye done 2 weeks later) [facility] profwifeCHECK TOPOGRAPHY PRE-OP DIAGNOSIS #1 Cataracts both eyes, R>L CDM Reports - EYEGEN Id: [id number] Status: Fnl documented in this encounter Plan of Treatment Upcoming Encounters Date Type Department Care Team (Latest Contact Info) Description 11/12/2023 8:10 AM CDT Appointment Department of Laboratory Medicine and Pathology, [facility] in [place], [place] [address] [place] [address] Alejandro Flores APRN, C.N.P. [address] [place] [phone] 11/12/2023 9:00 AM CDT Appointment Department of Radiology in [place], [place] [address] [place] [phone] Alejandro Flores APRN, C.N.P. [address] [place] [phone] Discharge Disposition: Home or Self Care 11/12/2023 10:45 AM CDT Appointment Department of Radiology, [place], [place] [address] [place] [address] Alejandro Flores APRN, C.N.P. [address] [place] [phone] 11/12/2023 3:00 PM CDT Office Visit Division of Gastroenterology in [place], [place] [address] [place] [phone] Alejandro Flores APRN, C.N.P. [address] [place] [phone] documented as of this encounter Visit Diagnoses Not on filedocumented in this encounter Additional Health Concerns Infection Onset Date Last Indicated Resolved Time COVID19 Pending 06/13/2021 06/13/2021 06/13/2021 2 :09 PM CDT documented as of this encounter Care Teams Hot Shot Relationship Specialty Start Date End Date Elsewhere, Pcp PCP - General Internal Medicine 01/17/23 documented as of this encounter
--- OUTSIDE RECORDS SUMMARY | 2023-10-30 11:26 | XMS_ITS | Encounter Summary ---
Author Organization [facility] Address [address] [place] [address] Care Team Providers Care Storage Management Architect Name Role Phone Elsewhere, Pcp Primary Care Provider Unavailabl e Encounter Details Date Type Department Care Team (Late st Contact Info) Description 11/03/2007 Historical Ophthalmology RST OPH Porsha Mcdaniel M.D. [address] [place] [address] Social History Tobacco Use Types Packs/Day Years Used Date Smoking Tobacco: Never Assessed Sex and Gender Information Value Date Recorded Sex Assigned at Female 11/19/2018 6:54 AM CDT Gender Identity Female 10/14/2017 2:48 PM CDT Sexual Orientation Straight 10/14/2017 2: 48 PM CDT documented as of this encounter Progress Notes * Porsha Mcdaniel M.D. - 11/03/2007 7:05 AM CDT Eye General CHIEF COMPLAINT recheck cataracts HISTORY OF PRESENT ILLNESS The patient describes no blurred vision in either eye. Bothered by headlights when driving at night. Increased difficulty reading road signs at night . Denies pain, floaters or flashing lights. IMPRESSION / REPORT / PLAN #1 Cataracts - both eyes discussed options overall still functioning well, still able to drive at night. observe #2 Myopia, Astigmatism, Presbyopia rx given DIAGNOSIS #1 Cataracts - both eyes #2 Myopia, Astigmatism, Presbyopia CDM Reports - EYEGEN Id: [id number] Status: Fnl documented in this encounter Plan of Treatment Upcoming Encounters Date Type Department Care Team (Latest Contact Info) Description 11/12/2023 8:10 AM CDT Appointment Department of Laboratory Medicine and Pathology, [facility] in [place], [place] [address] [place] [phone] Alejandro Flores APRN, C.N.P. [address] [place] [phone] 11/12/2023 9:00 AM CDT Appointment Department of Radiology in [address] [phone] Alejandro Flores APRN, C.N.P. [address] [place] [phone] Discharge Disposition: Home or Self Care 11/12/2023 10:45 AM CDT Appointment Department of Radiology, [facility] in [place], [place] [address] [place] [phone] Alejandro Flores APRN, C.N.P. [address] [place] [phone] 11/12/2023 3:00 PM CDT Office Visit Division of Gastroenterology in [address] [phone] Alejandro Flores APRN, C.N.P. [address] [place] [phone] documented as of this encounter Visit Diagnoses Not on filedocumented in this encounter Additional Health Concerns Infection Onset Date Last Indicated Resolved Time COVID19 Pending 06/13/2021 06/13/2021 06/13/2021 2 :09 PM CDT documented as of this encounter Care Teams Storage Management Architect Relationship Specialty Start Date End Date Elsewhere, Pcp PCP - General Internal Medicine 01/17/23 documented as of this encounter
--- OUTSIDE RECORDS SUMMARY | 2023-10-30 11:26 | XMS_ITS | Encounter Summary ---
Author Organization [facility] Address [address] [place] [address] Care Team Providers Care Cuff Matcher Name Role Phone Elsewhere, Pcp Primary Care Provider Unavailabl e Encounter Details Date Type Department Care Team (Late st Contact Info) Description 10/25/2014 Historical Ophthalmology RST OPH Sofie Juarez, C.O.T. Social History Tobacco Use Types Packs/Day Years Used Date Smoking Tobacco: Never Assessed Sex and Gender Information Value Date Recorded Sex Assigned at Female 11/19/2018 6:54 AM CDT Gender Identity Female 10/14/2017 2:48 PM CDT Sexual Orientation Straight 10/14/2017 2: 48 PM CDT documented as of this encounter Progress Notes * Sofie Juarez, C.O.T. - 10/25/2014 1:59 PM CDT Eye Subsequent Visit HISTORY OF PRESENT ILLNESS Pre-op instructions given; right eye November 14 and left eye November 23. CDM Reports - EYESV Id: [id number] Status: Fnl documented in this encounter Plan of Treatment Upcoming Encounters Date Type Department Care Team (Latest Contact Info) Description 11/12/2023 8:10 AM CDT Appointment Department of Laboratory Medicine and Pathology, [facility] in [place], [place] [address] [place] [phone] Alejandro Flores APRN, C.N.P. [address] [place] [phone] 11/12/2023 9:00 AM CDT Appointment Department of Radiology in [place], [place] [address] [place] [phone] Alejandro Flores APRN, C.N.P. [address] [place] [phone] Discharge Disposition: Home or Self Care 11/12/2023 10:45 AM CDT Appointment Department of Radiology, [facility] in [place], [place] [address] [place] [address] Alejandro Flores APRN, C.N.P. [address] [place] [phone] 11/12/2023 3:00 PM CDT Office Visit Division of Gastroenterology in [address] [phone] Alejandro Flores APRN, C.N.P. [address] [place] [phone] documented as of this encounter Visit Diagnoses Not on filedocumented in this encounter Additional Health Concerns Infection Onset Date Last Indicated Resolved Time COVID19 Pending 06/13/2021 06/13/2021 06/13/2021 2 :09 PM CDT documented as of this encounter Care Teams Cuff Matcher Relationship Specialty Start Date End Date Elsewhere, Pcp PCP - General Internal Medicine 01/17/23 documented as of this encounter
--- OUTSIDE RECORDS SUMMARY | 2023-10-30 11:26 | XMS_ITS | Encounter Summary ---
Author Organization [facility] Address [address] [place] [address] Care Team Providers Care Intervention Teacher Name Role Phone Elsewhere, Pcp Primary Care Provider Unavailabl e Encounter Details Date Type Department Care Team (Late st Contact Info) Description 10/22/2005 Historical Ophthalmology RST OPH Jame Munoz O.D., Ph.D. Social History Tobacco Use Types Packs/Day Years Used Date Smoking Tobacco: Never Assessed Sex and Gender Information Value Date Recorded Sex Assigned at Female 11/19/2018 6:54 AM CDT Gender Identity Female 10/14/2017 2:48 PM CDT Sexual Orientation Straight 10/14/2017 2: 48 PM CDT documented as of this encounter Progress Notes * Jame Munoz O.D., Ph.D. - 10/22/2005 12:00 AM CDT Eye General CHIEF COMPLAINT cataract recheck HISTORY OF PRESENT ILLNESS Patient was told last year she had the beginning of cataracts in both eyes. Hazy distance vision, both eyes, x many months, occasionally. She is more sensitive to light and has to shade her eyes when in bright light. Denies pain, flashes, floaters and diplopia. IMPRESSION / REPORT / PLAN #1 Refractive error (myopic astigmatism, presbyopia). Plan: no change in spectacle prescription recommended, spectacle prescription (Refraction 2) given. #2 Cataract, not affecting acuity but causing glare Plan: Discussed glare control RTC 1 yr or PRN DIAGNOSIS #1 Refractive error (myopic astigmatism, presbyopia). #2 Cataract, not affecting acuity but causing glare CDM Reports - EYEGEN Id: [id number] Status: Fnl documented in this encounter Plan of Treatment Upcoming Encounters Date Type Department Care Team (Latest Contact Info) Description 11/12/2023 8:10 AM CDT Appointment Department of Laboratory Medicine and Pathology, [address] [phone] Alejandro Flores APRN, C.N.P. [address] [place] [phone] 11/12/2023 9:00 AM CDT Appointment Department of Radiology in [address] [phone] Alejandro Flores APRN, C.N.P. [address] [place] [phone] Discharge Disposition: Home or Self Care 11/12/2023 10:45 AM CDT Appointment Department of Radiology, [place], [place] [address] [place] [phone] Alejandro Flores APRN, C.N.P. [address] [place] [phone] 11/12/2023 3:00 PM CDT Office Visit Division of Gastroenterology in [address] [phone] Alejandro Flores APRN, C.N.P. [address] [place] [phone] documented as of this encounter Visit Diagnoses Not on filedocumented in this encounter Additional Health Concerns Infection Onset Date Last Indicated Resolved Time COVID19 Pending 06/13/2021 06/13/2021 06/13/2021 2 :09 PM CDT documented as of this encounter Care Teams Intervention Teacher Relationship Specialty Start Date End Date Elsewhere, Pcp PCP - General Internal Medicine 01/17/23 documented as of this encounter
--- OUTSIDE RECORDS SUMMARY | 2023-10-30 11:26 | XMS_ITS | Encounter Summary ---
Author Organization [facility] Address [address] [place] [address] Care Team Providers Care Senior Counsel Name Role Phone Elsewhere, Pcp Primary Care Provider Unavailabl e Encounter Details Date Type Department Care Team (Late st Contact Info) Description 10/16/2004 Historical Ophthalmology RST OPH Amairani Langford O.D. Social History Tobacco Use Types Packs/Day Years Used Date Smoking Tobacco: Never Assessed Sex and Gender Information Value Date Recorded Sex Assigned at Female 11/19/2018 6:54 AM CDT Gender Identity Female 10/14/2017 2:48 PM CDT Sexual Orientation Straight 10/14/2017 2: 48 PM CDT documented as of this encounter Progress Notes * Amairani Langford O.D. - 10/16/2004 12:00 AM CDT Eye General CHIEF COMPLAINT Glare from lights HISTORY OF PRESENT ILLNESS Past year - more glare from lights ant night. She notices it looks like starbursts. Was told she had the beginnings of cataracts . Feels vision is good, both eyes, distance and near. Denies flashesor floaters. Eye doctor in [place], [place] told her that she had the start of cataracts. IMPRESSION / REPORT / PLAN #1 Cataract, both eyes (right > left), incipient. Plan: observe, discussed #2 Refractive error (myopic astigmatism, presbyopia). Plan: spectacle prescription (Refraction 1) given, no change necessary RTC 1 year or prn DIAGNOSIS #1 Cataract, both eyes (right > left), incipient. #2 Refractive error (myopic astigmatism, presbyopia). CDM Reports - EYEGEN Id: [id number] Status: Fnl documented in this encounter Plan of Treatment Upcoming Encounters Date Type Department Care Team (Latest Contact Info) Description 11/12/2023 8:10 AM CDT Appointment Department of Laboratory Medicine and Pathology, [facility] in [address] [phone] Alejandro Flores APRN, C.N.P. [address] [place] [phone] 11/12/2023 9:00 AM CDT Appointment Department of Radiology in [address] [phone] Alejandro Flores APRN, C.N.P. [address] [place] [phone] Discharge Disposition: Home or Self Care 11/12/2023 10:45 AM CDT Appointment Department of Radiology, [facility] in [address] [phone] Alejandro Flores APRN, C.N.P. [address] [place] [phone] 11/12/2023 3:00 PM CDT Office Visit Division of Gastroenterology in [address] [phone] Alejandro Flores APRN, C.N.P. [address] [place] [phone] documented as of this encounter Visit Diagnoses Not on filedocumented in this encounter Additional Health Concerns Infection Onset Date Last Indicated Resolved Time COVID19 Pending 06/13/2021 06/13/2021 06/13/2021 2 :09 PM CDT documented as of this encounter Care Teams Senior Counsel Relationship Specialty Start Date End Date Elsewhere, Pcp PCP - General Internal Medicine 01/17/23 documented as of this encounter
--- OUTSIDE RECORDS SUMMARY | 2023-10-30 11:26 | XMS_ITS | Encounter Summary ---
Author Organization [facility] Address [address] [place] [address] Care Team Providers Care Sewer Line Photo Inspector Name Role Phone Elsewhere, Pcp Primary Care Provider Unavailabl e Encounter Details Date Type Department Care Team (Late st Contact Info) Description 10/31/2009 Historical Ophthalmology RST OPH Stella Weldon O.D. [address] [place] [phone] Social History Tobacco Use Types Packs/Day Years Used Date Smoking Tobacco: Never Assessed Sex and Gender Information Value Date Recorded Sex Assigned at Female 11/19/2018 6:54 AM CDT Gender Identity Female 10/14/2017 2:48 PM CDT Sexual Orientation Straight 10/14/2017 2: 48 PM CDT documented as of this encounter Progress Notes * Stella Weldon O.D. - 10/31/2009 2:50 PM CDT Eye General CHIEF COMPLAINT Patient is here for an eye exam. HISTORY OF PRESENT ILLNESS Patient denies ocular pain. flashes of lights, floaters or diplopia. Denies any vision concerns; denies any blurred vision in distance or near. IMPRESSION / REPORT / PLAN #1 Cataracts - both eyes discussed options overall still functioning well, still able to drive at night. observe plan 1. srx 2. 1 year / prn DIAGNOSIS #1 Cataracts - both eyes CDM Reports - EYEGEN Id: [id number] Status: Fnl documented in this encounter Plan of Treatment Upcoming Encounters Date Type Department Care Team (Latest Contact Info) Description 11/12/2023 8:10 AM CDT Appointment Department of Laboratory Medicine and Pathology, [facility] in [place], [place] [address] [place] [phone] Alejandor Flores APRN, C.N.P. [address] [place] [phone] 11/12/2023 9:00 AM CDT Appointment Department of Radiology in [address] [phone] Alejandro Flores APRN, C.N.P. [address] [place] [phone] Discharge Disposition: Home or Self Care 11/12/2023 10:45 AM CDT Appointment Department of Radiology, [facility] in [place], [place] [address] [place] [phone] Alejandro Flores APRN, C.N.P. [address] [place] [phone] 11/12/2023 3:00 PM CDT Office Visit Division of Gastroenterology in [address] [phone] Alejandro Flores APRN, C.N.P. [address] [place] [phone] documented as of this encounter Visit Diagnoses Not on filedocumented in this encounter Additional Health Concerns Infection Onset Date Last Indicated Resolved Time COVID19 Pending 06/13/2021 06/13/2021 06/13/2021 2 :09 PM CDT documented as of this encounter Care Teams Sewer Line Photo Inspector Relationship Specialty Start Date End Date Elsewhere, Pcp PCP - General Internal Medicine 01/17/23 documented as of this encounter
--- OUTSIDE RECORDS SUMMARY | 2023-10-30 11:26 | XMS_ITS | Encounter Summary ---
Author Organization [facility] Address [address] [place] [address] Care Team Providers Care Fur Trapper Name Role Phone Elsewhere, Pcp Primary Care Provider Unavailabl e Encounter Details Date Type Department Care Team (Late st Contact Info) Description 10/26/2008 Historical Ophthalmology RST OPH Sammy Vazquez O.D. [address] [place] [address] Social History Tobacco Use Types Packs/Day Years Used Date Smoking Tobacco: Never Assessed Sex and Gender Information Value Date Recorded Sex Assigned at Female 11/19/2018 6:54 AM CDT Gender Identity Female 10/14/2017 2:48 PM CDT Sexual Orientation Straight 10/14/2017 2: 48 PM CDT documented as of this encounter Progress Notes * Sammy Vazquez O.D. - 10/26/2008 2:58 PM CDT Eye General CHIEF COMPLAINT cataract follow up HISTORY OF PRESENT ILLNESS Patient here for annual cataract follow up. No vision changes noted at distance and near. Occasional flashes of light in the right eye. Denies pain, floater and diplopia. IMPRESSION / REPORT / PLAN #1 Cataracts - both eyes discussed options overall still functioning well, still able to drive at night. observe #2 Myopia, Astigmatism, Presbyopia rx given DIAGNOSIS #1 Cataracts - both eyes #2 Myopia, Astigmatism, Presbyopia CDM Reports - EYEGEN Id: [id number] Status: Fnl documented in this encounter Plan of Treatment Upcoming Encounters Date Type Department Care Team (Latest Contact Info) Description 11/12/2023 8:10 AM CDT Appointment Department of Laboratory Medicine and Pathology, [facility] in [place], [place] [address] [place] [phone] Alejandro Flores APRN, C.N.P. [address] [place] [phone] 11/12/2023 9:00 AM CDT Appointment Department of Radiology in [address] [phone] Alejandro Flores APRN, C.N.P. [address] [place] [phone] Discharge Disposition: Home or Self Care 11/12/2023 10:45 AM CDT Appointment Department of Radiology, [facility] in [place], [place] [address] [place] [phone] Alejandro Flores APRN, C.N.P. [address] [place] [phone] 11/12/2023 3:00 PM CDT Office Visit Division of Gastroenterology in [address] [phone] Alejandro Flores APRN, C.N.P. [address] [place] [phone] documented as of this encounter Visit Diagnoses Not on filedocumented in this encounter Additional Health Concerns Infection Onset Date Last Indicated Resolved Time COVID19 Pending 06/13/2021 06/13/2021 06/13/2021 2 :09 PM CDT documented as of this encounter Care Teams Fur Trapper Relationship Specialty Start Date End Date Elsewhere, Pcp PCP - General Internal Medicine 01/17/23 documented as of this encounter
--- OUTSIDE RECORDS SUMMARY | 2023-10-30 11:26 | XMS_ITS | Encounter Summary ---
Author Organization [facility] Address [address] [place] [address] Care Team Providers Care Manager Activities Name Role Phone Elsewhere, Pcp Primary Care Provider Unavailabl e Encounter Details Date Type Department Care Team (Late st Contact Info) Description 10/20/2013 Historical Ophthalmology RST OPH Crystal Dunn M.D. [address] [phone] Social History Tobacco Use Types Packs/Day Years Used Date Smoking Tobacco: Never Assessed Sex and Gender Information Value Date Recorded Sex Assigned at Female 11/19/2018 6:54 AM CDT Gender Identity Female 10/14/2017 2:48 PM CDT Sexual Orientation Straight 10/14/2017 2: 48 PM CDT documented as of this encounter Progress Notes * Crystal Dunn M.D. - 10/20/2013 7:10 AM CDT Eye General CHIEF COMPLAINT vision screen HISTORY OF PRESENT ILLNESS No new vision concerns. Flash of light; right eye; x many years; rarely when waking up in the morning. Denies floaters and ocular pain. Checking on progression of cataracts. Tried her prescription from last year and she never fully adjusted to them so she's been happy with the older pair of glassesshe's been wearing. IMPRESSION / REPORT / PLAN #1 Cataract, both eyes patient still functioning well, she is still hesitant to pursue surgery given the risks and given that she is functioning well will return in the Spring for re-evaluation #2 Refractive error Compound myopic astigmatism with presbyopia Rx#1 given RTC end of June DIAGNOSIS #1 Cataract, both eyes #2 Refractive error CDM Reports - EYEGEN Id: [id number] Status: Fnl documented in this encounter Plan of Treatment Upcoming Encounters Date Type Department Care Team (Latest Contact Info) Description 11/12/2023 8:10 AM CDT Appointment Department of Laboratory Medicine and Pathology, [facility] in [place], [place] [address] [place] [phone] Alejandro Flores APRN, C.N.P. [address] [place] [phone] 11/12/2023 9:00 AM CDT Appointment Department of Radiology in [address] [phone] Alejandro Flores APRN, C.N.P. [address] [place] [phone] Discharge Disposition: Home or Self Care 11/12/2023 10:45 AM CDT Appointment Department of Radiology, [place], [place] [address] [place] [phone] Alejandro Flores APRN, C.N.P. [address] [place] [phone] 11/12/2023 3:00 PM CDT Office Visit Division of Gastroenterology in [address] [phone] Alejandro Flores APRN, C.N.P. [address] [place] [phone] documented as of this encounter Visit Diagnoses Not on filedocumented in this encounter Additional Health Concerns Infection Onset Date Last Indicated Resolved Time COVID19 Pending 06/13/2021 06/13/2021 06/13/2021 2 :09 PM CDT documented as of this encounter Care Teams Manager Activities Relationship Specialty Start Date End Date Elsewhere, Pcp PCP - General Internal Medicine 01/17/23 documented as of this encounter
--- OUTSIDE RECORDS SUMMARY | 2023-10-30 11:26 | XMS_ITS | Encounter Summary ---
Author Organization [facility] Address [address] [place] [address] Care Team Providers Care Athletic Coordinator Name Role Phone Elsewhere, Pcp Primary Care Provider Unavailabl e Encounter Details Date Type Department Care Team (Late st Contact Info) Description 11/11/2012 Historical Ophthalmology RST OPH Meri Jones O.D. [address] [place] [address] Social History Tobacco Use Types Packs/Day Years Used Date Smoking Tobacco: Never Assessed Sex and Gender Information Value Date Recorded Sex Assigned at Female 11/19/2018 6:54 AM CDT Gender Identity Female 10/14/2017 2:48 PM CDT Sexual Orientation Straight 10/14/2017 2: 48 PM CDT documented as of this encounter Progress Notes * Meri Jones O.D. - 11/11/2012 8:32 AM CDT Eye General CHIEF COMPLAINT cataracts HISTORY OF PRESENT ILLNESS Right eye, blurred vision when tigre conditions, glare at night with driving, constant, gradually worse over the last year, moderate. ? need surgery. CBN: as above. Right worse than left, but functioning well. IMPRESSION / REPORT / PLAN #1 Cataract, OD>OS Visually signifciant for glare Discussed, would like to consider surgical consult in the spring Plan: Monitor #2 Refractive error Compound myopic astigmatism with presbyopia Plan: Release Rx#1 RTC 1 year or sooner with concerns. DIAGNOSIS #1 Cataract, OD>OS #2 Refractive error CDM Reports - EYEGEN Id: [id number] Status: Fnl documented in this encounter Plan of Treatment Upcoming Encounters Date Type Department Care Team (Latest Contact Info) Description 11/12/2023 8:10 AM CDT Appointment Department of Laboratory Medicine and Pathology, [place], [place] [address] [place] [phone] Alejandro Flores APRN, C.N.P. [address] [place] [phone] 11/12/2023 9:00 AM CDT Appointment Department of Radiology [address] [phone] Alejandro Flores APRN, C.N.P. [address] [place] [phone] Discharge Disposition: Home or Self Care 11/12/2023 10:45 AM CDT Appointment Department of Radiology, [place], [place] [address] [place] [phone] Alejandro Flores APRN, C.N.P. [address] [place] [phone] 11/12/2023 3:00 PM CDT Office Visit Division of Gastroenterology in [place], [place] [address] [place] [phone] Alejandro Flores APRN, C.N.P. [address] [place] [phone] documented as of this encounter Visit Diagnoses Not on filedocumented in this encounter Additional Health Concerns Infection Onset Date Last Indicated Resolved Time COVID19 Pending 06/13/2021 06/13/2021 06/13/2021 2 :09 PM CDT documented as of this encounter Care Teams Athletic Coordinator Relationship Specialty Start Date End Date Elsewhere, Pcp PCP - General Internal Medicine 01/17/23 documented as of this encounter
--- OUTSIDE RECORDS SUMMARY | 2023-10-30 11:26 | XMS_ITS | Encounter Summary ---
Author Organization [facility] Address [address] [place] [address] Care Team Providers Care Mechanic Assistant Name Role Phone Elsewhere, Pcp Primary Care Provider Unavailabl e Encounter Details Date Type Department Care Team (Late st Contact Info) Description 10/23/2010 Historical Ophthalmology RST OPH Jame Munoz O.D., [...] Notes * Jame Munoz O.D., Ph.D. - 10/23/2010 8:30 AM CDT Eye General CHIEF COMPLAINT cataracts HISTORY OF PRESENT ILLNESS hazy vision; both eyes; in the am; x 2-3 years denies flashing lights, or diplopia. occasional floaters IMPRESSION / REPORT / PLAN #1 Cataracts - both eyes discussed options overall still functioning well, still able to drive at night. observe #2 Meibomian gland dysfunction Warm compress, lid massage #3 Refractive error (Myopic Astigmatism, Presbyopia) rx given DIAGNOSIS #1 Cataracts - both eyes #2 Meibomian gland dysfunction #3 Refractive error (Myopic Astigmatism, Presbyopia) CDM Reports - EYEGEN Id: [id number] Status: Fnl documented in this encounter Plan of Treatment Upcoming Encounters Date Type Department Care Team (Latest Contact Info) Description 11/12/2023 8:10 AM CDT Appointment Department of Laboratory Medicine and Pathology, [facility] in [place], [place] [address] [place] [phone] Alejandro Flores APRN, C.N.P. [address] [place] [phone] 11/12/2023 9:00 AM CDT Appointment Department of Radiology in [address] [phone] Alejandro Flores APRN, C.N.P. [address] [place] [phone] Discharge Disposition: Home or Self Care 11/12/2023 10:45 AM CDT Appointment Department of Radiology, [facility] in [place], [place] [address] [place] [phone] Alejandro Flores APRN, C.N.P. [address] [place] [phone] 11/12/2023 3:00 PM CDT Office Visit Division of Gastroenterology in [address] [phone] Alejandro Flores APRN, C.N.P. [address] [place] [phone] documented as of this encounter Visit Diagnoses Not on filedocumented in this encounter Additional Health Concerns Infection Onset Date Last Indicated Resolved Time COVID19 Pending 06/13/2021 06/13/2021 06/13/2021 2 :09 PM CDT documented as of this encounter Care Teams Mechanic Assistant Relationship Specialty Start Date End Date Elsewhere, Pcp PCP - General Internal Medicine 01/17/23 documented as of this encounter
--- OUTSIDE RECORDS SUMMARY | 2023-10-30 11:26 | XMS_ITS | Encounter Summary ---
Author Organization [facility] Address [address] [place] [address] Care Team Providers Care Tip Bander Name Role Phone Elsewhere, Pcp Primary Care Provider Unavailabl e Encounter Details Date Type Department Care Team (Late st Contact Info) Description 10/23/2011 Historical Ophthalmology RST OPH Jam Leon M.D. [address] [place] [address], [employer] [address] [place] [phone] Social History Tobacco Use Types Packs/Day Years Used Date Smoking Tobacco: Never Assessed Sex and Gender Information Value Date Recorded Sex Assigned at Female 11/19/2018 6:54 AM CDT Gender Identity Female 10/14/2017 2:48 PM CDT Sexual Orientation Straight 10/14/2017 2: 48 PM CDT documented as of this encounter Progress Notes * Jam Leon M.D. - 10/23/2011 1:21 PM CDT Eye General CHIEF COMPLAINT yearly cataract check HISTORY OF PRESENT ILLNESS Blurred vision; both eyes; x several years; slowly progressive; symptoms are mild. Denies flashes, floaters, or diplopia. IMPRESSION / REPORT / PLAN Consult requested by: Sandra [id number] #1 Cataracts - both eyes, visually significant Still functioning well, avoiding driving at night. Discussed surgical options, wishes to defer for now #2 Meibomian gland dysfunction Warm compress, lid massage #3 Refractive error (Myopic Astigmatism, Presbyopia) Rx updated DIAGNOSIS #1 Cataracts - both eyes, visually significant #2 Meibomian gland dysfunction #3 Refractive error (Myopic Astigmatism, Presbyopia) CDM Reports - EYEGEN Id: [id number] Status: Fnl documented in this encounter Plan of Treatment Upcoming Encounters Date Type Department Care Team (Latest Contact Info) Description 11/12/2023 8:10 AM CDT Appointment Department of Laboratory Medicine and Pathology, [facility] in [place], [place] [address] [place] [phone] Alejandro Flores APRN, C.N.P. [address] [place] [phone] 11/12/2023 9:00 AM CDT Appointment Department of Radiology in [address] [phone] Alejandro Flores APRN, C.N.P. [address] [place] [phone] Discharge Disposition: Home or Self Care 11/12/2023 10:45 AM CDT Appointment Department of Radiology, [facility] in [place], [place] [address] [place] [phone] Alejandro Flores APRN, C.N.P. [address] [place] [phone] 11/12/2023 3:00 PM CDT Office Visit Division of Gastroenterology in [address] [phone] Alejandro Flores APRN, C.N.P. [address] [place] [phone] documented as of this encounter Visit Diagnoses Not on filedocumented in this encounter Additional Health Concerns Infection Onset Date Last Indicated Resolved Time COVID19 Pending 06/13/2021 06/13/2021 06/13/2021 2 :09 PM CDT documented as of this encounter Care Teams Tip Bander Relationship Specialty Start Date End Date Elsewhere, Pcp PCP - General Internal Medicine 01/17/23 documented as of this encounter
--- OUTSIDE RECORDS SUMMARY | 2023-10-30 11:26 | XMS_ITS | Encounter Summary ---
Author Organization [facility] Address [address] [place] [address] Care Team Providers Care Costume Director Name Role Phone Elsewhere, Pcp Primary Care Provider Unavailabl e Encounter Details Date Type Department Care Team (Late st Contact Info) Description 10/21/2006 Historical Ophthalmology RST OPH Porhsa Mcdaniel M.D. [address] [place] [address] Social History Tobacco Use Types Packs/Day Years Used Date Smoking Tobacco: Never Assessed Sex and Gender Information Value Date Recorded Sex Assigned at Female 11/19/2018 6:54 AM CDT Gender Identity Female 10/14/2017 2:48 PM CDT Sexual Orientation Straight 10/14/2017 2: 48 PM CDT documented as of this encounter Progress Notes * Porsha Mcdaniel M.D. - 10/21/2006 12:30 PM CDT Eye General CHIEF COMPLAINT Recheck cataracts; increased glare HISTORY OF PRESENT ILLNESS Patient reports visual acuity is stable but c/o decreased vision/increased glare at night, noticingglare for about 1 year. Denies flashes, floaters and diplopia. Denies ocular pain. IMPRESSION / REPORT / PLAN #1 Cataracts - both eyes discussed options overall still functioning well, still able to drive at night. observe #2 Myopia, Astigmatism, Presbyopia rx given DIAGNOSIS #1 Cataracts - both eyes #2 Myopia, Astigmatism, Presbyopia CDM Reports - EYEGEN Id: [id number] Status: Fnl documented in this encounter Plan of Treatment Upcoming Encounters Date Type Department Care Team (Latest Contact Info) Description 11/12/2023 8:10 AM CDT Appointment Department of Laboratory Medicine and Pathology, [facility] in [address] [phone] Alejandro Flores APRN, C.N.P. [address] [place] [phone] 11/12/2023 9:00 AM CDT Appointment Department of Radiology in [address] [phone] Alejandro Flores APRN, C.N.P. [address] [place] [phone] Discharge Disposition: Home or Self Care 11/12/2023 10:45 AM CDT Appointment Department of Radiology, [address] [phone] Alejandro Flores APRN, C.N.P. [address] [place] [phone] 11/12/2023 3:00 PM CDT Office Visit Division of Gastroenterology in [address] [phone] Alejandro Flores APRN, C.N.P. [address] [place] [phone] documented as of this encounter Visit Diagnoses Not on filedocumented in this encounter Additional Health Concerns Infection Onset Date Last Indicated Resolved Time COVID19 Pending 06/13/2021 06/13/2021 06/13/2021 2 :09 PM CDT documented as of this encounter Care Teams Costume Director Relationship Specialty Start Date End Date Elsewhere, Pcp PCP - General Internal Medicine 01/17/23 documented as of this encounter
== END 2023-10-28 08:31 | disposition home or self-care (01) ==
LOC: NFLDREF 10-30 11:22
PROVIDERS: PCP Internal Medicine; Referring Provider Internal Medicine; Visit Provider Internal Medicine
DX: E03.9 Hypothyroidism, unspecified (principal); E78.5 Hyperlipidemia, unspecified; M81.0 Age-related osteoporosis without current pathological fracture
CPT/HCPCS: 80061; 82306; 84443

== ENCOUNTER 2024-01-13 09:30 | Outpatient (RCR) | payer MEDICARE, OTHER, SELFPAY ==
--- NOTE | 2023-11-28 14:36 | PT.OPEX ---
PT [place] [facility] Eval PT [facility] Outpatient Eval Start: 11/27/23 10:10 Freq: Status: Active Protocol: Document 11/27/23 10:10 [facility] (Rec: 11/27/23 11:19 [facility] [id number]) E-signed By Alejandro Marie, PT Physical Therapy Outpatient Evaluation Insurance Information Recert Due Date 02/19/24 Insurance Name Medicare B Medical Diagnosis Mechanical low back pain Other low back pain M54.59 Treating Diagnosis Low back pain M54.5 Pain in left hip M25.552 Imaging Report Information none Referring MD Laura Reina MD Subjective Preferred Name Becca Subjective Becca presents with chronic intermittent left buttock pain related to an old tennis injury a few years ago. I'm quite competitive so I ran from the baseline to the net and felt something snap in my left low buttock. Pain comes & goes but has never fully resolved. She is interested in getting exercises and strategies to manage pain. Patient is active, likes to travel. When really bad, pain and numbness will extend down to her left keller. Exercises she has tried are clamshells, pidgeon stretch, banded hip abduction. Foam roller and massage ball to left hip. She is not on any meds for pain. Becca also noted partway through the eval , that she gets fairly regularly calf and hamstring cramping when lying down. Aggravating: prolonged sitting /flights, sitting on hard or super soft surfaces. Lying prone caused hamstring cramping. PMH: ileostomy + revisions. HTN, osteoporosis Pain Comments 0-08/19 Date of Last Physician Visit 11/04/23 Current Work Status Retired Precautions Treatment Precautions/Contraindications Pt has an ilieostomy Therapy Limitations/Systems Review Other Medical Problem Objective Other/Pertinent Objective Posture: level pelvis, mild flattening of upper lumbar lordosis AROM: Flexion: WNL, reach to floor pain free. Mild tensing left buttock w/ repeated movement, no radiating sx Extension: 50%, + concordant sign, chelle buttock pain Sidebend: WNL but w/ R SB + left buttock pain, L SB mild R buttock pain SLS: at least 10 seconds, chelle, no increase in LBP/buttock pain ROM: R hip: flexion WNL IR: 55 deg ER: 50 deg Ext: WNL L hip: Flex WNL IR: 52 deg: ER: 45 deg Ext: WNL Becca did not tolerate well lying prone for hip ROM measurement & other tests Knee & Ankle ROM WNL, chelle LE strength: grossly 5/5 except hip extension 4/5 chelle, Left hip abduction 4+/5, left hip ER 4/ 5 and pain onset w/ repetition Pt had onset of hamstring cramping with bridging ex and lying prone. Special tests: SLR: R: - for neural tension, hamstring tension ~100 deg L: - neural tension, hamstring ~ 105 deg [place]: R: tight w/ R lateral hip pain, no buttock pain L: negative Hip quadrant: R: - L: - Edwin test: R: thigh just to table + quad tension L: less tension than R hip, thigh easily to table Prone knee flexion: - bilaterally Palpation: + TTP left glut med (mild), glut max (mild) piriformis (mod). 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 Non painful sacral mobs Functional Test Performed & Score Lying prone: causes chelle hamstring cramping Able to get down to/up from floor w/o UE assist SLS: at least 10 sec, chelle, with minimal sway Assessment Assessment/Impression 78 year old female presents with chronic intermittent left low back/buttock pain with occasional radiating symptoms to just below the knee when really flared up (ie. after prolonged sitting on uncomfortable surface). Becca is active at baseline (active travel adventures) but has given up tennis since her injury. She has tried several different interventions/ exercises to manage her symptoms, but is at a plateau and is frustrated with her ongoing pain, wondering if she just has to live with it. Upon evaluation, Becca appears to have both mechanical (low lumbar spine) and soft tissue (piriformis) contributors to her symptoms. She also experiences highly irritable hamstrings/calf muscles that easily cramp, suggesting nervous system irritability, however, neural tension testing is negative. Unusually, she is more limited in hip ER than IR and right hip (non symptomatic) is generally tighter than her left. She also demos impaired left hip extension/ER strength . The presence of her ileostomy may be a factor in her symptomology. I do recommend skilled PT for Becca to address her impairments, starting with more focused self-mobilization of her glutes/piriformis along with glute max strengthening. I also recommend that she have a session with one of our Women' s Health specialist PTs to assess for any pelvic floor or visceral contributors to her symptoms. She will schedule a f/u visit with one from our clinic here in [place]. Primary Functional Limitations prolonged sitting, sitting on uncomfortable (hard/ too soft) surfaces, tennis Plan of Care Rehabilitation Potential Excellent Rehabilitation Potential Comments active, self-motivated, cooperative Physical Therapy Goals In 6-8 weeks, patient will: 1) Tolerate sitting at least one hour on supportive surface , pain max 1/10, left buttock 2) Report at least 50% decrease in frequency of left buttock pain 3) Be I with HEP and techniques for self-management of residual symptoms Coordination/Communication With Referral Source Treatment Plan/Direct Interventions Joint Mobilization,Manual Therapy,Neuromuscular Re-ed, Self-Care/Home Management, Therapeutic Activities, Therapeutic Exercises,Other - See Comments Direct Interventions Clarification Women's Health consult Comments Frequency/Duration 1-2x/week for 6-8 weeks Patient Will Be Discharged From Therapy Completion of LTG(s), Independent w/HEP, Independently Progressing Evaluation Billing Untimed Code Treatment Minutes 30 Complexity Moderate Certification Information Initial Certification Date 11/27/23 Ending Certification Date 02/19/24 Provider Signature Required Yes Provider Signature Shows Agreement With POC & Medical Necessity Physician NPI Number Write NPI# Here Physician Comment/Change : Physician Signature & Date Requested Please Sign/Date Here
== END 2024-03-31 13:45 | disposition home or self-care (01) ==
PROVIDERS: PCP Internal Medicine; Visit Provider Internal Medicine
DX: M54.59 Other low back pain (principal); M25.552 Pain in left hip; Z51.89 Encounter for other specified aftercare
CPT/HCPCS: 97110; 97112; 97140; 97162; 97530

== ENCOUNTER 2024-10-20 08:17 | Outpatient (CLI) | payer MEDICARE, OTHER, SELFPAY | END 2024-10-20 08:18 | disposition home or self-care (01) | LOC: NFLDREF 10-25 09:01 | PROVIDERS: PCP Internal Medicine; Referring Provider Internal Medicine; Visit Provider Internal Medicine | DX: M85.80 Other specified disorders of bone density and structure, unspecified site (principal); E03.9 Hypothyroidism, unspecified; E78.5 Hyperlipidemia, unspecified | CPT/HCPCS: 80061; 82306; 84443 ==